=== PATIENT | male | born 1935 | race Caucasian/White ===

== ENCOUNTER 2017-12-19 12:43 | Emergency (ER) | payer MEDICARE, OTHER ==
[2017-12-19] MEDS ORDERED: Adacel (T-DAP) 0.5 ML VIAL ONE (13:17)
== END 2017-12-19 13:27 | disposition home or self-care (01) ==
LOC: BURERS 12:43
DX: S51.812A Laceration without foreign body of left forearm, initial encounter (principal); E11.9 Type 2 diabetes mellitus without complications; I10 Essential (primary) hypertension; Z79.84 Long term (current) use of oral hypoglycemic drugs; Z79.82 Long term (current) use of aspirin; Z79.899 Other long term (current) drug therapy; W22.8XXA Striking against or struck by other objects, initial encounter; Y92.59 Other trade areas as the place of occurrence of the external cause
CPT/HCPCS: 90471; 90715

== ENCOUNTER 2019-03-01 11:24 | Outpatient (CLI) | payer MEDICARE ==
--- NOTE | 2019-03-01 13:18 | RAD ---
RADIOGRAPH CHEST 2 VIEWS: Date: 03/01/19 Time: 11:38 a.m. HISTORY: 83-year-old male with abnormal bilateral breath sounds. COMPARISON: 02/17/19. FINDINGS: There are bilateral pleural effusions opacifying approximately 20% of the lungs, at the bases. Cardio megaly. Bilateral calcified pleural plaque, right greater than left. No consolidation or pulmonary ed luis m. No pneumothorax. The pulmonary venous congestion demonstrated previously appear less prominent o n the current study, at least partly due to greater exposure technique, and deeper inspiration on the current study. IMPRESSION: 1. Bilateral pleural effusions. 2. 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 3. No pulmonary edema. JN [] POS: [facility]
== END 2019-03-01 11:25 | disposition home or self-care (01) ==
LOC: BURRAD 11:24
PROVIDERS: ATTEND Family Medicine
DX: R06.01 Orthopnea (principal); J90 Pleural effusion, not elsewhere classified; J92.0 Pleural plaque with presence of asbestos
CPT/HCPCS: 71046

== ENCOUNTER 2019-03-29 13:22 | Emergency (ER) | payer MEDICARE ==
[2019-03-29 14:26] LABS: ALT (SGPT) 29 U/L (8-55); AST (SGOT) 34 U/L (5-34); Alkaline Phosphatase 121 U/L (40-150); Anion Gap 17 mmol/L (10-20); BUN (Urea Nitrogen) 41 mg/dL (8.4-25.7); Bilirubin, Total 0.7 mg/dL (0.2-1.2); Calc. Creatinine Clearance 0 mL/min (70-130); Calcium 8.6 mg/dL (7.8-10.44); Carbon Dioxide 26 mmol/L (23-31); Chloride 93 mmol/L (98-107); Estimated GFR-MDRD 30; Globulin 4.2 g/dL (2.4-3.5); Glucose 158 mg/dL (83-110); Protein, Total 7.2 g/dL (5.8-8.1); Sodium 132 mmol/L (136-145)
[2019-03-29 14:28] LABS: #Eosinphils 0.1 thou/uL (0.0-0.7); #Monocytes 0.4 thou/uL (0.11-0.59); #Neutrophils 3.2 thou/uL (1.40-6.50); %Eosinophils 2.3 % (0.0-10.0); %Lymphocytes 20.3 % (21.0-51.0); %Monocytes 7.6 % (0.0-10.0); %Neutrophils 68.8 % (42.0-75.0); Hemoglobin 7.3 g/dL (14.0-18.0); Mean Corpuscular HGB CONC 31.4 g/dL (32.0-36.0); Mean Corpuscular Hemoglobin 30.8 pg (27.0-31.0); Mean Platelet Volume 5.8 fL (7.4-10.4); Platelet Count 116 thou/uL (130-400); RBC Distribution Width 18.4 % (11.5-14.5); Red Blood Cell (RBC) Count 2.35 mill/uL (4.70-6.10); White Blood Cell (WBC) Count 4.7 thou/uL (4.8-10.8)
[2019-03-29 14:29] LABS: MDiff Complete? YES
[2019-03-29 14:46] LABS: CKMB 2.2 ng/mL (0-6.6)
--- NOTE | 2019-03-29 20:35 | RAD ---
PORTABLE CHEST 03/29/19 An AP portable film at 1350 is compared with a 03/01/19 study. Bilateral pleural effusions are present as before. There is some slight prominence of the vessels, so there may be a very mild congestive change. Mild cardiomegaly is the same as before. Calcified pleur al plaques are noted throughout the lungs, presumably from prior asbestos exposure. A calcification a round the left shoulder may be a synovial chondroma or a nearby calcified lymph node. IMPRESSION: Mild cardiomegaly and bilateral effusions. Possible slight congestive change. Chronic calcified pleu ral plaques. POS: HOME
--- NOTE | 2019-03-29 20:39 | CT ---
CT OF THE CHEST WITHOUT CONTRAST: 03/29/[address] of the chest was performed for evaluation of this patient with hypotension and weakness fol lowing a thoracentesis yesterday. Bilateral pleural effusions are present to a moderate degree, slightly larger on the left than the ri ght. The density of the effusions is homogeneous throughout. There are no hyperdense areas to suggest acute blood within the fluid. There are numerous calcified pleural plaques throughout the thorax veronica aterally, typical of asbestos exposure. There is some chronic changes in the lungs with some compress ryan atelectasis of the lower lobes in particular. Small masses would be easily hidden on this study. The heart is mildly enlarged. There is no pericardial fluid. 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 Scans into the upper abdomen showed no acute changes in the area scanned. A moderate amount of fecal material is noted in the visible portions of the colon. IMPRESSION: 1. Cardiomegaly. Possible mild failure. 2. Bilateral pleural effusions without evidence of acute bleeding. 3. Asbestos exposure as evidenced by calcified pleural plaques. COPD. POS: HOME
== END 2019-03-29 16:35 | disposition short-term general hospital (02) ==
LOC: BURERS 13:22
DX: I11.0 Hypertensive heart disease with heart failure (principal); I50.9 Heart failure, unspecified; I48.91 Unspecified atrial fibrillation; Z79.899 Other long term (current) drug therapy; Z79.82 Long term (current) use of aspirin; Z79.01 Long term (current) use of anticoagulants
CPT/HCPCS: 71045; 71250; 80053; 82553; 83605; 84484; 85025; 93005